=== PATIENT | female | born 1975 | race Caucasian/White ===

== ENCOUNTER 2016-10-16 23:18 | Emergency (ER) | payer OTHER | END 2016-10-17 00:30 | disposition home or self-care (01) | LOC: ER 23:18 | DX: R13.10 Dysphagia, unspecified (principal); Z90.710 Acquired absence of both cervix and uterus ==

== ENCOUNTER 2016-12-14 00:54 | Emergency (ER) | payer OTHER | END 2016-12-14 03:44 | disposition home or self-care (01) | LOC: ER 00:54 | DX: R07.9 Chest pain, unspecified (principal); J02.9 Acute pharyngitis, unspecified; R00.2 Palpitations; R05 Cough; F41.9 Anxiety disorder, unspecified; Z90.710 Acquired absence of both cervix and uterus | CPT/HCPCS: 36415 ==